=== PATIENT | male | born 1960 | race Caucasian/White ===

== ENCOUNTER 2018-04-27 09:04 | Emergency (ER) | payer OTHER ==
[2018-04-27] MEDS: KETOROLAC 60 MG INJ IM (10:15)
== END 2018-04-27 10:30 | disposition home or self-care (01) ==
LOC: FTE 09:04
DX: M25.561 Pain in right knee (principal); J20.9 Acute bronchitis, unspecified; Z87.891 Personal history of nicotine dependence
CPT/HCPCS: 96372; 99284-25; J1885

== ENCOUNTER 2018-08-20 01:49 | Emergency (ER) | payer OTHER ==
[2018-08-20] MEDS ORDERED: HYDROCODONE/APAP (5/325) TAB PO (03:30)
[2018-08-20] MEDS ORDERED: COLCHICINE 0.6 MG TAB PO ×2 (03:30)
[2018-08-20] MEDS: HYDROCODONE/APAP (10/325) TAB PO ×2 (03:43→03:52)
[2018-08-20] MEDS: predniSONE 20 MG TAB PO (03:43)
[2018-08-20] MEDS: IBUPROFEN 600 MG TAB PO (03:43)
== END 2018-08-20 04:00 | disposition home or self-care (01) ==
LOC: FTE 01:49
DX: M10.9 Gout, unspecified (principal); F17.210 Nicotine dependence, cigarettes, uncomplicated
CPT/HCPCS: 99283; J7512